=== PATIENT | male | born 1975 | race Caucasian/White ===

== ENCOUNTER 2020-02-12 09:30 | Emergency (ER) | payer BC, SELFPAY ==
[2020-02-12 09:35] VITALS: BP 182/94; PULSE 70; RESP 18; TEMP 36.9
--- NOTE | 2020-02-12 09:49 | DI.RAD.S_ITS ---
PROCEDURE: XR HAND RT 2V INDICATIONS: deep left tib area (mid), rt hnd 4th/5th web space TECHNIQUE: 3 views of the hand(s) acquired. COMPARISON: [facility], CR, XR TIBIA FIBULA LT 2V, 02/12/2020, 9:49. FINDINGS: Bones: No fractures or dislocations. Carpal bones are normally aligned. No suspicious bony lesions. Soft tissues: Soft tissue swelling is seen. No radiopaque foreign bodies are seen. IMPRESSION: Soft tissue swelling is seen. No radiopaque foreign bodies are seen. No acute bony injury is seen. Dictated by: Arik Díaz M.D. on 02/12/2020 at 9:15 Approved by: Arik Díaz M.D. on 02/12/2020 at 9:16
--- NOTE | 2020-02-12 09:49 | DI.RAD.S_ITS ---
PROCEDURE: XR TIBIA FIBULA RT 2V INDICATIONS: deep left tib area (mid), rt hnd 4th/5th web space TECHNIQUE: 2 views of the tibia and fibula were acquired. COMPARISON: [facility], CR, XR HAND RT 2V, 02/12/2020, 9:45. FINDINGS: Bones: No fractures or dislocations. No suspicious bony lesions. A plantar calcaneal spur is seen. Soft tissues: Mild soft tissue gas can be seen distally and medially. No radiopaque foreign bodies are seen. IMPRESSION: Soft tissue gas is seen, without radiopaque foreign bodies. Dictated by: Arik Díaz M.D. on 02/12/2020 at 9:16 Approved by: Arik Díaz M.D. on 02/12/2020 at 9:17
--- NOTE | 2020-02-12 10:11 | ED_ITS ---
HPI - Skin/Abscess/Foreign Bdy General Chief complaint: Skin/Abscess/Foreign Body Stated complaint: Lt boo Rt pinky cut Time Seen by Provider: 02/12/20 10:03 Source: patient and family Mode of arrival: Wheelchair Limitations: language barrier History of Present Illness HPI narrative: CC: Laceration of the palmar webbing between the right little finger and ring finger extending onto the proximal phalanx of the little finger. An oblique laceration across the distal left leg. HPI: Related Data Previous Rx's Medication Instructions Recorded cephalexin [Keflex] 500 mg PO QID #20 cap 02/12/20 ibuprofen 600 mg PO Q6H PRN #20 tab 02/12/20 Allergies Allergy/AdvReac Type Severity Reaction Status Date / Time lidocaine AdvReac Unknown Verified 02/12/20 09:47 Review of Systems Review of Systems Narrative: REVIEW OF SYSTEMS: CONSTITUTIONAL: No fever chills or sweats NEUROLOGICAL: No headache numbness tingling anesthesia is produces or paralysis EENT: No sore throat difficulty and swelling sinus congestion change in vision CARDIO-PULMONARY: No chest pain cough shortness of breath GASTROINTESTINAL: No abdominal pain nausea or vomiting GENITAL URINARY: No urinary symptoms MUSCULOSKELETAL/ RHEUMATOLOGICAL: No back pain more than usual Patient History Social History Smoking Status: Never smoker Smoking Status: Never smoker alcohol intake frequency: 0-2 drinks per day Substance Use Type: does not use Exam Narrative Exam Narrative: PHYSICAL EXAM: CONSTITUTIONAL: Awake, Alert, Oriented, Coherent, Cooperative in NAD. Does not appear toxic or ill. HEAD: AT/NC EENT: PERRL, FROM of eyes, no discharge, no nystagmus MOUTH: Wearing a mask SPINE: Palpationof the cervical, Thoracic, Lumbar or Sacral spine reveals no gross deformity or tenderness. No CVA tenderness. THORAX: No deformity, retractions, chest wall tenderness. LUNGS: Clear, symmetrical breath sounds without respiratory distress. HEART: Normal heart tones, regular rhythm and rate without murmur. ABDOMEN: Soft, non-tender, normal bowel sounds without guarding, rebound, rigidity or palpable mass. EXTREMITIES: The patient has a and oblique laceration that is approximately 2 inches in length across the anterior left leg with a smaller leceration approximately 3/4 inches below it. The patient has a 2-1/2 curvilinear lace ration over the webbing between his right little and ring fingers extending on to the radial aspect of the proximal phalanx of the little finger SKIN: No rash, bruising, petechiae or purpura. NEURO: Awake, alert, oriented, conversive, cranial nerves II-XII are symmetrical , moves all 4 extremities and is ambulatory. Sensation and motor function are within normal limits. The patient is able to flex extend and abduct and adduct his fingers of the right hand. Initial Vital Signs Initial Vital Signs: Vital Signs Temperature 98.4 F 02/12/20 09:35 Pulse Rate 70 02/12/20 09:35 Respiratory Rate 18 02/12/20 09:35 Blood Pressure 182/94 H 02/12/20 09:35 Course Course Course Narrative: 1121: X-rays of both his hand and leg reveal no fracture or bony abnormality and no radiopaque foreign body present in the lacerations. 1226: lacerations repaired : Lower left leg 5 and half cm laceration and a 2 cm laceration 2 bebo in the 2 cm laceration and 6 bebo in the 5.5 cm laceration. The hand laceration involving the right hand is primarily over the volar/palmar surface of the proximal phalanx of the little finger. The laceration is curvilinear and 2 cm in length which was closed with 3 4-0 simple nylon sutures. Sensation and motor functions vascular were all intact. The patient was administered a digital block involving the right little finger with 0.5% Marcaine. A 0.5% Marcaine field block around the lacerations of the leg was administered. The patient tolerated the procedure well. Orders Ordered: Discontinued Medications Acetaminophen (Tylenol) 975 mg PO NOW ONE Stop: 02/12/20 10:35 Last Admin: 02/12/20 10:41 Dose: 975 mg Documented by: GRISELDA Bacitracin (Bacitracin) 1 applic TOP NOW ONE Stop: 02/12/20 12:42 Last Admin: 02/12/20 12:53 Dose: 1 applic Documented by: GRISELDA Bupivacaine HCl (Sensorcaine 0.5%) 20 ml SUBCUT NOW ONE Stop: 02/12/20 11:21 Last Admin: 02/12/20 11:34 Dose: 20 ml Documented by: GRISELDA Diphtheria/Tetanus/Acell Pertussis (Adacel) 0.5 ml IM .ONCE ONE Stop: 02/12/20 09:50 Last Admin: 02/12/20 10:28 Dose: 0.5 ml Documented by: GRISELDA Cefazolin Sodium/Dextrose (Ancef) 1 gm in 50 mls @ 200 mls/hr IV NOW ONE Stop: 02/12/20 10:03 Last Infusion: 02/12/20 11:30 Dose: 0 mls/hr Documented by: Admin: 02/12/20 10:29 Dose: 200 mls/hr Documented by: GRISELDA Morphine Sulfate (Morphine) 4 mg IV NOW ONE Stop: 02/12/20 11:37 Last Admin: 02/12/20 11:39 Dose: 4 mg Documented by: GRISELDA Vital Signs Vital signs: Vital Signs - 8 hr 02/12/20 12:40 02/12/20 13:40 Pulse Rate 77 64 Respiratory Rate 18 18 Blood Pressure [Left Arm] 175/110 H 151/91 H Pulse Oximetry 99 97 Discharge Plan Departure Patient Disposition: Home Clinical Impression: Laceration of leg Qualifiers: Encounter type: initial encounter Laterality: left Qualified Code(s): S81.812A - Laceration without foreign body, left lower leg, initial encounter Laceration of hand Qualifiers: Encounter type: initial encounter Foreign body presence: without foreign body Laterality: right Qualified Code(s): S61.411A - Laceration without foreign body of right hand, initial encounter Discharge Date/Time: 02/12/20 13:42 Instructions: DI for Laceration Repair, DI for Wound Infection Activity Restrictions/Additional Instructions: 1. Wound check in 2 days. Leave the dressing on. If you develop profuse bleeding uncontrolled pain and discomfort. When drainage fever chills or sweats return to the emergency department sooner. 2. Follow-up with your primary care physician to be rechecked or return to the emergency department. 3. The sutures out of the little finger of the right hand are to be removed in 10 days. 4. The bebo involving the laceration of the left lower leg is to be removed in 10 days. 5. For pain and discomfort take ibuprofen 600 mg every 6 hours. If you are having worsening pain or discomfort you need to be re-evaluated. 6. Take the Keflex as prescribed until gone. Prescriptions: New ibuprofen 600 mg tablet 600 mg PO Q6H PRN (Reason: fever or pain) Qty: 20 RF: 0 cephalexin [Keflex] 500 mg capsule 500 mg PO QID Qty: 20 RF: 0
[2020-02-12] MEDS: TET,DIPH,PERTUSS(ACELL),VAC/PF 0.5 ML SYRINGE IM (10:28)
[2020-02-12] MEDS: CEFAZOLIN 1 GM/50 ML FROZ.PIGGY IV (10:29)
[2020-02-12] MEDS: ACETAMINOPHEN 325 MG TABLET 975 MG PO (10:41)
[2020-02-12] MEDS: BUPIVACAINE 0.5% MDV 20 ML SUBCUT (11:34)
[2020-02-12] MEDS: MORPHINE 4 MG/ML INJ IV (11:39)
[2020-02-12 11:40] VITALS: BP 175/110; PULSE 65; O2SAT 99
[2020-02-12 12:40] VITALS: BP 175/110; PULSE 77; RESP 18; O2SAT 99
[2020-02-12] MEDS: BACITRACIN OINT 0.9 GM PCKT 1 APPLIC TOP (12:53)
--- NOTE | 2020-02-12 13:22 | PC.NURSE ---
Wound Care: Right hand 1st finger sutures in place, cleansed area with saline. applied bacitracin, telfa and wrapped in cling gauze, secured w/ paper tape and and tubular stockingnette. Left lower boo with bebo intact, no active bleeding, cleansed with normal saline. applied bacitracin, telfa, 4x4's and cling gauze, secured with paper tape and tubular stockingnette. Patient tolerated well. Instructed on s/sx's of infection including redness, streaking up extremity, increased warmth or swelling, unusual or foul drainage, fever and night sweats. Patient confirms understanding.
[2020-02-12 13:40] VITALS: BP 151/91; PULSE 64; RESP 18; O2SAT 97
== END 2020-02-12 13:42 | disposition home or self-care (01) ==
PROVIDERS: Emergency Provider Emergency Medicine
DX: S81.812A Laceration without foreign body, left lower leg, initial encounter (principal); S61.411A Laceration without foreign body of right hand, initial encounter; W29.8XXA Contact with other powered hand tools and household machinery, initial encounter
CPT/HCPCS: 12002; 64450; 73120; 73590; 90471; 96365; 96375; 99283; 99285; 90715; J2270

== ENCOUNTER 2023-03-16 18:07 | Emergency (ER) | payer BC, SELFPAY ==
[2023-03-16 18:12] VITALS: BP 184/107
[2023-03-16 18:13] VITALS: PULSE 64; O2SAT 97
[2023-03-16 18:14] VITALS: BP 184/107; PULSE 62; RESP 16; TEMP 36.8; O2SAT 99; BMI 33.3
--- NOTE | 2023-03-16 18:40 | DI.US.S_ITS ---
PROCEDURE: US SCROTUM INDICATIONS: left testicular pain TECHNIQUE: Real-time scanning was performed of the scrotum and testicles, with image documentation. Color and pulse Doppler interrogation was performed of both testicles. COMPARISON: None. FINDINGS: Right: Testicle measures 4.3 x 3.1 x 1.8 cm. No hydrocele or varicocele. Increased vascularity of the scrotal wall. There is also skin thickening. Punctate echogenic foci seen in the right testis, not meeting criteria for microlithiasis. Increased epididymal vascularity on the right. Left: Left testicle measures 4.4 x 2.5 x 1.6 cm. No hydrocele or varicocele. There is increased vascularity of the scrotal wall. Mildly heterogeneous epididymis and epididymal cyst cluster measuring 4 mm is present. Doppler: Color and pulse Doppler demonstrate normal and symmetric arterial flow in both testicles. IMPRESSION: Possible scrotal cellulitis. No significant abnormality otherwise at the area of concern inferior/posterior scrotum. Increased vascularity of the right epididymis could represent mild inflammation. No active torsion Dictated by: Zaheer Johnson M.D. on 03/16/2023 at 19:48 Approved by: Zaheer Johnson M.D. on 03/16/2023 at 19:52
--- NOTE | 2023-03-16 18:44 | ED.MALEGU ---
HPI - Male Genitourinary <Mina Farr DO - Last Filed: 03/22/23 02:01> General Chief complaint: Urogenital-Male Stated complaint: Testicular issues,feels like basketball in pants Time Seen by Provider: 03/16/23 18:40 Source: patient Mode of arrival: Ambulatory History of Present Illness HPI Narrative: 48-year-old male nonsmoker with noncontributory medical history presents with his in the chief complaint of pain and perceived swelling in his left testicle for the past few days. He denies any trauma or injury. He states it is exquisitely tender with any palpation or motion. He denies fever or chills. He has no nausea, vomiting or diarrhea. Related Data Previous Rx's Medication Instructions Recorded cephalexin 500 mg capsule (Keflex) 500 mg PO QID #20 caps 02/12/20 ibuprofen 600 mg tablet 600 mg PO Q6H PRN fever or pain 02/12/20 #20 tabs Allergies Allergy/AdvReac Type Severity Reaction Status Date / Time lisinopril Allergy Cough Verified 03/16/23 18:18 lidocaine AdvReac Unknown Verified 02/12/20 09:47 Review of Systems <Mina Farr DO - Last Filed: 03/22/23 02:01> Review of Systems Narrative: GENERAL: Denies chills, fatigue, malaise, fever, sweats. HEENT: Denies sinus pain, ear pain, sore throat, difficulty swallowing, dizziness. RESPIRATORY: Denies dyspnea, cough, wheezing, hemoptysis, sputum. CARDIOVASCULAR: Denies chest pain, palpitations, orthopnea, edema, GASTROINTESTINAL: Denies nausea, vomiting, abdominal pain, diarrhea, constipation, melena. : See HPI MUSCULOSKELETAL: denies weakness, joint pain, or bony pain SKIN: Denies rash, skin lesions, or other NEUROLOGIC: Denies weakness, headache, numbness, change in speech, confusion, seizures, incoordination. PSYCHIATRIC: No concerning psychosocial issues. 12 point review of systems is negative except for those stated above Patient History <Mina Farr DO - Last Filed: 03/22/23 02:01> Social History Smoking Status: Never smoker Smoking Status: Never smoker alcohol intake frequency: 0-2 drinks per day Substance Use Type: does not use Exam <Mina Farr DO - Last Filed: 03/22/23 02:01> Narrative Exam Narrative: GEN: AOx3 and in mild distress EYES: Pupils are equal, round, and reactive to light and accommodation. Extraoccular muscles are intact bilaterally. There is no subconjunctival hemorrhage or exudate. CHEST: Lungs are clear to auscultation bilaterally and free of wheezes, rales, or rhonchi. Heart rate is regular rhythm, there are no murmurs, clicks, rubs, or gallops. There is no chest wall tenderness. ABD: Abdomen is soft and nontender. There is no guarding or rebound. Bowel sounds are normal in all 4 quadrants. There is no mass or organomegaly. : Left testicle slightly high riding, significantly tender to palpation, worse with elevation, no obvious swelling or discoloration, no obvious inguinal hernia or palpable mass. Examined while patient standing EXT: Full painless ROM of all extremities with no loss of sensation or strength. SKIN: Warm, pink, and dry. No erythema or rash Initial Vital Signs Initial Vital Signs: Vital Signs Blood Pressure 184/107 H 03/16/23 18:12 <Gentry Keith MD - Last Filed: 03/17/23 02:27> Initial Vital Signs Initial Vital Signs: Vital Signs Blood Pressure 184/107 H 03/16/23 18:12 Course <Mina Farr DO - Last Filed: 03/22/23 02:01> Orders Ordered: ED Orders 03/16/23 18:40 US scrotum Stat Vital Signs Vital signs: Vital Signs - 8 hr 03/16/23 19:54 03/16/23 21:50 Pulse Rate 56 L 57 L Respiratory Rate 18 18 Blood Pressure 159/86 H 146/96 H Pulse Oximetry 96 96 Oxygen Delivery Method Room Air Room Air <Gentry Keith MD - Last Filed: 03/17/23 02:27> Course Course Narrative: March 16, 2023 at 7:00 p.m..s/o from dr farr, patient awaiting for ultrasound as well as urinalysis results Orders Ordered: ED Orders 03/16/23 18:40 US scrotum Stat Vital Signs Vital signs: Vital Signs - 8 hr 03/16/23 19:54 03/16/23 21:50 Pulse Rate 56 L 57 L Respiratory Rate 18 18 Blood Pressure 159/86 H 146/96 H Pulse Oximetry 96 96 Oxygen Delivery Method Room Air Room Air MDM - Male Genitourinary <Mina Farr DO - Last Filed: 03/22/23 02:01> Lab Data Labs: Urine Dip Bedside Urine Glucose Negative Bedside Urine Bilirubin - Negative Bedside Urine Ketone - Negative Urine Specific [place] 1.015 Bedside Urine Occult Blood - Negative Bedside Urine pH 6.0 Bedside Urine Protein - Negative Bedside Urine Urobilinogen 0.2 mg/dl Bedside Urine Nitrite - Negative Bedside Urine Leukocytes - Negative Esterase MDM Narrative Medical decision making narrative: [48] year old patient presents with left testicle pain Multiple etiologies for patient's symptoms considered including, but not limited to: [Testicular torsion versus epididymitis versus orchitis versus inguinal hernia versus other] Prior Charts reviewed in our EMR Primary Historian: patient Labs reviewed and interpreted by myself: Imaging reviewed: Consultations: 1899 -ultrasound ordered, urine pending. Patient signed out to Dr. Keith for final disposition <Gentry Keith MD - Last Filed: 03/17/23 02:27> Lab Data Labs: Urine Dip Bedside Urine Glucose Negative Bedside Urine Bilirubin - Negative Bedside Urine Ketone - Negative Urine Specific [place] 1.015 Bedside Urine Occult Blood - Negative Bedside Urine pH 6.0 Bedside Urine Protein - Negative Bedside Urine Urobilinogen 0.2 mg/dl Bedside Urine Nitrite - Negative Bedside Urine Leukocytes - Negative Esterase Imaging Data Scrotal ultrasound: Radiologist's Impression: [place] [address] Ultrasound Report Signed Patient: Satinder Quintana MR#: [id number] : 1975 Acct:[id number] Age/Sex: 48 / M Date of Service: 03/16/23 Loc: ED Accession Number: [id number] ?? Procedure: US scrotum Ordering Provider: Mina Farr D.O. PROCEDURE:? US SCROTUM ? INDICATIONS:? left testicular pain ? TECHNIQUE:? Real-time scanning was performed of the scrotum and testicles, with image documentation.? Color and pulse Doppler interrogation was performed of both testicles.? ? COMPARISON:? None. ? FINDINGS:? ? Right:? Testicle measures 4.3 x 3.1 x 1.8 cm.? No hydrocele or varicocele.? Increased vascularity of the scrotal wall.? There is also skin thickening.? Punctate echogenic foci seen in the right testis, not meeting criteria for microlithiasis.? Increased epididymal vascularity on the right.? ? Left:? Left testicle measures 4.4 x 2.5 x 1.6 cm.? No hydrocele or varicocele.? There is increased vascularity of the scrotal wall.? Mildly heterogeneous epididymis and epididymal cyst cluster measuring 4 mm is present. ? Doppler:? Color and pulse Doppler demonstrate normal and symmetric arterial flow in both testicles.? ? IMPRESSION:? Possible scrotal cellulitis.? No significant abnormality otherwise at the area of concern inferior/posterior scrotum.? Increased vascularity of the right epididymis could represent mild inflammation.? No active torsion ? Dictated by: Zaheer Johnson M.D. on 03/16/2023 at 19:48 ? ? Approved by: Zaheer Johnson M.D. on 03/16/2023 at 19:52 ? MDM Narrative Medical decision making narrative: [48] year old patient presents with left testicle pain Multiple etiologies for patient's symptoms considered including, but not limited to: [Testicular torsion versus epididymitis versus orchitis versus inguinal hernia versus other] Prior Charts reviewed in our EMR Primary Historian: patient Labs reviewed and interpreted by myself: Imaging reviewed: Consultations: 1899 -ultrasound ordered, urine pending. Patient signed out to Dr. Keith for final disposition Urinalysis negative nitrite negative leukocyte esterase Scrotal ultrasound left epididymal cyst cluster 4 mm is present. No torsion. Possible scrotal cellulitis. However on exam clinically not cellulitis. I did review results with patient and reexamination. There is no scrotal tenderness or scrotal edema erythema. No signs of Shaun's. No cellulitis. There is reproducible left epididymal tenderness. Patient is circumcised. Discharge Plan Departure Patient Disposition: Home Clinical Impression: Cyst of epididymis Instructions: Epididymal Cyst Activity Restrictions/Additional Instructions: Please continue ibuprofen 800 mg every 8 hours as needed for pain. Please call provided urology office in the morning, Dr. Nunes, for re-evaluation of ultrasound findings today. You have been found to have an epididymal cyst. No antibiotics are indicated at this time. It is not an infection. Return if worse if any questions or concerns. Please do continue wearing boxer briefs for scrotal support. Prescriptions: No Action ibuprofen 600 mg tablet 600 mg PO Q6H PRN (Reason: fever or pain) Qty: 20 0RF cephalexin [Keflex] 500 mg capsule 500 mg PO QID Qty: 20 0RF Referrals: Gentry Nunes MD [Physician] - Stand Alone Forms: Patient Portal/API
[2023-03-16 19:54] VITALS: BP 159/86; PULSE 56; RESP 18; O2SAT 96
[2023-03-16 21:50] VITALS: BP 146/96; PULSE 57; RESP 18; O2SAT 96
== END 2023-03-16 21:51 | disposition home or self-care (01) ==
PROVIDERS: Emergency Provider Emergency Medicine
DX: N50.3 Cyst of epididymis (principal)
CPT/HCPCS: 51798; 76870; 81003; 99282

== ENCOUNTER 2023-09-29 14:24 | Emergency (ER) | payer BC, SELFPAY ==
[2023-09-29] VITALS (8 sets, daily range): BP systolic 150–188; BP diastolic 76–103; PULSE 60–73; RESP 11–18; TEMP 36.6; O2SAT 95–99; BMI 33.7
--- NOTE | 2023-09-29 14:38 | DI.RAD.S_ITS ---
PROCEDURE: XR CHEST 1V INDICATIONS: chest pain TECHNIQUE: One view of the chest was acquired. COMPARISON: None. FINDINGS: Surgical changes and devices: None. Lungs and pleura: Lungs are clear. No pleural effusions or pneumothorax. Mediastinum: Mediastinal contours appear normal. Heart size is normal. Bones and chest wall: No suspicious bony lesions. Overlying soft tissues appear unremarkable. IMPRESSION: No acute cardiopulmonary abnormality is seen. Dictated by: Primitivo Peraza M.D. on 09/29/2023 at 15:26 Approved by: Primitivo Peraza M.D. on 09/29/2023 at 15:26
--- NOTE | 2023-09-29 14:54 | PC.NURSE ---
Patient states that he's been having issues with his heart racing and high blood pressure and burning in his esophagus for the past month. Today while he was opening presents his bp was high and he developed some dizzyness. He does state that he has been having trouble seeing for a while now, along with his bp and heart racing issues. He was placed on his lisinopril by his doctor but developed a cough so he stopped it and his doctor said it's probably ok if he doesn't continue it.
[2023-09-29 14:59] LABS: Add Manual Diff / Slide Review NO; Basophils Absolute Auto 0 /uL (0-100); Basophils Percent Auto 0.7 % (0-2); Eosinophils Absolute Auto 200 /uL (0-450); Eosinophils Percent Auto 4.2 % (2-4); Hematocrit 42.4 % (41-53); Lymphocytes Absolute Auto 2000 /uL (1100-4500); Lymphocytes Percent Auto 36.6 % (25-40); Mean Corpuscular HGB Conc 35.4 % (30-36); Mean Corpuscular Hemoglobin 31.4 PG (26-34); Mean Corpuscular Volume 88.5 fL (80-100); Monocytes Absolute Auto 400 /uL (0-900); Monocytes Percent Auto 6.6 % (3-14); Neutrophils Absolute Auto 2800 /uL (1500-7000); Neutrophils Percent Auto 51.9 % (50-75); Platelet Count 183 X10^3/uL (150-400); Red Blood Cell Count 4.79 X10^6/uL (4.5-5.9); Red Cell Distribution Width 13.2 % (11.6-14.8); White Blood Cell Count 5.3 X10^3/uL (4.5-11.0)
[2023-09-29 15:04] LABS: Prothrombin Time 11.6 SECONDS (9.4-12.5)
[2023-09-29 15:06] LABS: PTT Partial Thromboplastin Tim 31 SECONDS (25.1-36.5)
[2023-09-29 15:08] LABS: Alanine Aminotransferase 38 IU/L (<50); Albumin 4.6 g/dL (3.5-5.0); Albumin Globulin Ratio 1.4 (1.0-2.8); Alkaline Phosphatase 44 U/L (38-126); Aspartate Aminotransferase 31 IU/L (17-59); BUN Creatinine Ratio 16.3 (6-22); Bilirubin Total 0.8 mg/dL (0.2-1.3); Blood Urea Nitrogen 16 mg/dL (9-20); Carbon Dioxide 28 mmol/L (22-32); Chloride 100 mmol/L (98-107); Creatine Kinase 145 U/L (55-170); Estimated Glomerular Filt Rate > 60 mL/min (>60); Globulin 3.3 g/dL (1.7-4.1); Glucose 99 mg/dL (70-100); HEMOLYSIS 43 (0-50); Lipase 331 U/L (23-300); Magnesium 1.9 mg/dL (1.6-2.3); Potassium 3.8 mmol/L (3.4-5.1); Sodium 137 mmol/L (137-145); Total Protein 7.9 g/dL (6.3-8.2)
[2023-09-29 15:20] LABS: Troponin I < 0.012 ng/mL (0.01-0.034)
--- NOTE | 2023-09-29 15:40 | ED_ITS ---
HPI - Dizziness General Chief Complaint: Dizziness Stated Complaint: High B/P/ dizzy/ headache Time Seen by Provider: 09/29/23 15:02 Source: patient Mode of arrival: Ambulatory History of Present Illness HPI Narrative: Patient 48-year-old male with a history JESSIE using CPAP regularly presenting today with palpitations elevated blood pressure. He reports that he has been monitoring blood pressure for number of weeks baseline blood pressure seems to be about 140/80. However over the last 1 week he has noted significant fluctuations. He can tell his blood pressure is high he gets headache he feels palpitations. He generally does not feel well. He reports that he has been having some issues with his CPAP machine he has been using the CPAP machine for about 8 years he loves it he wears it for naps he takes it when he travels is very compliant with it. He reports that there some sort of issue with it it is not working like it is supposed to he feels like he is not sleeping well. He feels like this is causing blood pressure to be elevated. Today while opening presents he took his blood pressure at home it was 213/102. In the ED it is 188/103. Not having any chest pain now. Blood pressure is now come down to 155/77 and overall is feeling significantly better. He has an appointment with his primary care provider but can not get in until November 12. He is supposed to go on a boat, he works on a tugboat, and he is nervous. 15 years ago he tried lisinopril and had a cough, but no angioedema Related Data Home Medications Medication Instructions Recorded Confirmed semaglutide [Ozempic] SUBCUT 05/01/23 05/01/23 tadalafil 5 mg tablet 5 mg PO DAILY PRN Erectile 09/29/23 09/29/23 Dysfunction Previous Rx's Medication Instructions Recorded losartan 25 mg tablet 25 mg PO DAILY #60 tabs 09/29/23 Allergies Allergy/AdvReac Type Severity Reaction Status Date / Time lisinopril Allergy Cough Verified 03/16/23 18:18 lidocaine AdvReac Unknown Verified 02/12/20 09:47 Patient History Medical History (Updated 09/29/23 @ 16:08 by Edilia Odell DO) Left testicular pain Cyst of epididymis determined by ultrasound Surgical History (Updated 05/01/23 @ 10:16 by Gentry Nunes MD) Hx of vasectomy Family History Sister Cancer Social History marital status: number of children: 1 occupational status: employed Smoking Status: Never smoker alcohol intake: current caffeine: Yes Type(s) of exercise: walking frequency: daily Smoking Status: Never smoker alcohol intake frequency: holidays/special occasions only Substance Use Type: does not use Exam Initial Vital Signs Initial Vital Signs: Vital Signs Temperature 97.9 F 09/29/23 14:26 Pulse Rate 60 09/29/23 14:26 Respiratory Rate 16 09/29/23 14:26 Blood Pressure 188/103 H 09/29/23 14:26 Pulse Oximetry 99 09/29/23 14:26 Oxygen Delivery Method Room Air 09/29/23 14:26 GENERAL: Alert well-appearing 48-year-old male and in no acute distress. HEENT: Head atraumatic,EOMI, pupils reactive, face symmetric, moist mucous membranes CARDIOVASCULAR: Regular rate and rhythm without murmurs, rubs or gallops. RESPIRATORY: Breath sounds equal bilaterally, no wheezes rales or rhonchi. ABDOMEN: Soft, nontender. Normoactive bowel sounds all 4 quadrants. No guarding or rebound. EXTREMITIES: Normal range of motion, no clubbing or edema. Neurovascularly intact NEUROLOGICAL: Alert and oriented x4.Normal gait and speech. SKIN: Warm, dry, no laceration, no petechiae, no rashes or lesions. Course Orders Ordered: ED Orders 09/29/23 14:38 XR chest 1V Stat EKG-12 Lead Stat 09/29/23 14:45 Complete Blood Count AUTO DIFF Stat Comprehensive Metabolic Panel Stat Lipase Stat Magnesium Stat PTT Partial Thromboplastin Valeriy Stat Prothrombin Time INR Stat Troponin & CK Cardiac Panel Stat Discontinued Medications Aspirin (Aspirin 81 Mg Chew Tab) 324 mg PO NOW ONE Stop: 09/29/23 14:37 Last Admin: 09/29/23 14:55 Dose: Not Given Documented By: ELI Losartan Potassium (Losartan 25 Mg Tablet) 25 mg PO NOW ONE Stop: 09/29/23 15:59 Last Admin: 09/29/23 16:04 Dose: 25 mg Documented By: ALEXANDER Vital Signs Vital signs: Vital Signs - 8 hr 09/29/23 14:26 09/29/23 14:30 09/29/23 14:32 Temperature 97.9 F Pulse Rate 60 70 Respiratory Rate 16 Blood Pressure 188/103 H 188/103 H Pulse Oximetry 99 95 Oxygen Delivery Method Room Air 09/29/23 14:32 09/29/23 14:50 09/29/23 14:50 Temperature Pulse Rate 62 66 Respiratory Rate 11 L 14 Blood Pressure 180/84 H Pulse Oximetry 99 99 Oxygen Delivery Method 09/29/23 15:00 09/29/23 15:00 09/29/23 15:30 Temperature Pulse Rate 65 Respiratory Rate 15 Blood Pressure 158/76 H 155/77 H Pulse Oximetry 95 Oxygen Delivery Method 09/29/23 15:30 09/29/23 16:00 09/29/23 16:00 Temperature Pulse Rate 62 64 Respiratory Rate 18 14 Blood Pressure 150/85 H Pulse Oximetry 97 97 Oxygen Delivery Method Room Air Room Air 09/29/23 16:04 Temperature Pulse Rate 73 Respiratory Rate Blood Pressure 150/85 H Pulse Oximetry Oxygen Delivery Method MDM - Dizziness Lab Data 09/29/23 14:45 09/29/23 14:45 Labs: Lab Results 09/29/23 Range/Units 14:45 WBC 5.3 (4.5-11.0) X10^3/uL RBC 4.79 (4.5-5.9) X10^6/uL Hgb 15.0 (13.5-17.5) g/dL Hct 42.4 (41-53) % MCV 88.5 (80-100) fL MCH 31.4 (26-34) PG MCHC 35.4 (30-36) % RDW 13.2 (11.6-14.8) % Plt Count 183 (150-400) X10^3/uL Neut % (Auto) 51.9 (50-75) % Lymph % (Auto) 36.6 (25-40) % Crenshaw % (Auto) 6.6 (3-14) % Eos % (Auto) 4.2 H (2-4) % Baso % (Auto) 0.7 (0-2) % Neut # (Auto) 2800 (6577-5499) /uL Lymph # (Auto) 2000 (1130-1308) /uL Crenshaw # (Auto) 400 (0-900) /uL Eos # (Auto) 200 (0-450) /uL Baso # (Auto) 0 (0-100) /uL PT 11.6 (9.4-12.5) SECONDS INR 1.0 (0.9-1.3) APTT 31 (25.1-36.5) SECONDS Sodium 137 (137-145) mmol/L Potassium 3.8 (3.4-5.1) mmol/L Chloride 100 (98-107) mmol/L Carbon Dioxide 28 (22-32) mmol/L BUN 16 (9-20) mg/dL Creatinine 0.98 (0.66-1.25) mg/dL Estimated GFR > 60 (>60) mL/min BUN/Creatinine Ratio 16.3 (6-22) Glucose 99 (70-100) mg/dL Calcium 10.0 (8.4-10.2) mg/dL Magnesium 1.9 (1.6-2.3) mg/dL Total Bilirubin 0.8 (0.2-1.3) mg/dL AST 31 (17-59) IU/L ALT 38 (<50) IU/L Alkaline Phosphatase 44 (38-126) U/L Total Creatine Kinase 145 (55-170) U/L Troponin I < 0.012 (0.01-0.034) ng/mL Total Protein 7.9 (6.3-8.2) g/dL Albumin 4.6 (3.5-5.0) g/dL Globulin 3.3 (1.7-4.1) g/dL Albumin/Globulin Ratio 1.4 (1.0-2.8) Lipase 331 H (23-300) U/L Imaging Data Chest x-ray: Radiologist's Impression: PROCEDURE: XR CHEST 1V INDICATIONS: chest pain TECHNIQUE: One view of the chest was acquired. COMPARISON: None. FINDINGS: Surgical changes and devices: None. Lungs and pleura: Lungs are clear. No pleural effusions or pneumothorax. Mediastinum: Mediastinal contours appear normal. Heart size is normal. Bones and chest wall: No suspicious bony lesions. Overlying soft tissues appear unremarkable. IMPRESSION: No acute cardiopulmonary abnormality is seen. Dictated by: Primitivo Peraza M.D. on 09/29/2023 at 15:26 ECG Data Interpretation: Normal sinus rhythm rate 59 HI interval 170 QRS [address] changes no T- wave inversions MDM Narrative Medical decision making narrative: Patient 48-year-old male presenting today with elevated blood pressure. He does have good record he has been taking his blood pressure for a long time he knows he needs some blood pressure medication. He is had spikes this week he thinks likely due to CPAP machine malfunctioning. He has a appointment with his primary care provider but can not get in any sooner. Blood work has been reviewed he is no evidence of end-organ damage normal renal function and electrolytes. Blood pressures come down without any sort of intervention. At this time long discussion with he and his generally we do not prescribe blood pressure medications in the ED however he has good record and has been taking her blood pressure for a long time. I think reasonable to start him on medication we discussed hydrochlorothiazide versus losartan. He would prefer the losartan. He understands that he needs to repeat blood work his dose may need to be adjusted and he may have side effects. Patient not having any any chest pain EKG within normal limits negative troponin. No evidence of stroke or focal deficits on exam Discharge Plan Departure Patient Disposition: Home Clinical Impression: Hypertension Instructions: High Blood Pressure Activity Restrictions/Additional Instructions: *You have been diagnosed with hypertension *What to do: At this time we will start you on blood pressure medication. You will likely need repeat blood work your dose may need to be adjusted. Please continue to check her blood pressure 1 to 2 times daily. *Continue to take medications as directed Losartan 25 mg once day--> [facility] (you will need to see your PCP for any refills) *Follow up with your primary care provider in 2-3 days or call [phone] *Return to ER if you should have chest pain dizziness passing out or any new, worsening or concerning symptoms Prescriptions: New losartan 25 mg tablet 25 mg PO DAILY Qty: 60 0RF No Action tadalafil 5 mg tablet 5 mg PO DAILY PRN (Reason: Erectile Dysfunction) semaglutide [Ozempic] SUBCUT Referrals: Jocelyne Mancuso PA-C [Primary Care Provider] - Stand Alone Forms: Patient Portal/API
[2023-09-29] MEDS: LOSARTAN 25 MG TABLET PO (16:04)
== END 2023-09-29 16:18 | disposition home or self-care (01) ==
PROVIDERS: Emergency Provider Emergency Medicine; PCP Physician Assistant Medical
DX: I10 Essential (primary) hypertension (principal); R07.9 Chest pain, unspecified
CPT/HCPCS: 36415; 71045; 80053; 82550; 83690; 83735; 84484; 85025; 85610; 85730; 93005; 99284